=== PATIENT | female | born 1995 | race Caucasian/White ===

== ENCOUNTER 2017-01-13 23:42 | Emergency (ER) | payer BC, OTHER ==
[~2017-01-13 23:42] MED LIST: FLUT1SPR9 NASAL
[2017-01-14 02:00] VITALS: BP 141/71; PULSE 97; RESP 16; O2SAT 100
--- NOTE | 2017-01-14 03:31 | PD ---
HPI Chief Complaint: Psychiatric Symptoms Time Seen by Provider: 03:25 Travel History International Travel<30 days: No Contact w/Intl Traveler<30days: No Traveled to known affect area: No History of Present Illness HPI 21-year-old white female presents to emergency department under Mcfadden act by . The patient states that she had gone out with friends and a small boat fishing this evening. She had drank a large quantity of alcohol. She states that she does not recall the surrounding events that brought her to the ER tonight. According to the Mcfadden act the patient had become violent. When she had interacted with PD she seemed confused and could not take care of herself. She is brought here under a Mcfadden act. The patient here denies any suicidal homicidal ideation. She states merely that drank too much tonight. She denies any medical complaints. She does drink alcohol, smokes tobacco and marijuana on occasion. The patient states that her last menstrual cycle was approximately one month ago. Possible . PFSH Past Medical History Medical History: Denies Significant Hx Tetanus Vaccination: < 5 Years Past Surgical History Surgical History: No Previous Surgery Social History Alcohol Use: Yes (Socially) Tobacco Use: Yes (Socially ) Substance Use: Yes Allergies-Medications (Allergen,Severity, Reaction): Coded Allergies: No Known Allergies (Unverified , 05/19/16) Reported Meds & Prescriptions Reported Meds & Active Scripts Active Flonase Allergy Relief (Fluticasone Propionate (Nasal)) 50 Mcg/Act Spr 2 [place] NASAL DAILY 10 Days Review of Systems Except as stated in HPI: all other systems reviewed are Neg Physical Exam Narrative GENERAL: Well-nourished, well-developed patient. SKIN: Warm and dry. Patient has abrasions to the hands bilaterally which appear to be from striking something. HEAD: Normocephalic and atraumatic. EYES: No scleral icterus. No injection or drainage. ENT: No nasal drainage noted. Mucous membranes pink. Airway patent. NECK: Supple, trachea midline. Moves head freely without obvious discomfort. CARDIOVASCULAR: Regular rate and rhythm without murmurs, gallops, or rubs. RESPIRATORY: Breath sounds equal bilaterally. No accessory muscle use. GASTROINTESTINAL: Abdomen soft, non-tender, nondistended. EXTREMITIES: No cyanosis or edema. BACK: Nontender without obvious deformity. No CVA tenderness. NEURO: Patient is alert and oriented. no sensorimotor deficits. Nonfocal. Normal speech. PSYCH: No delusions. No auditory or visual hallucinations. Data Data Last Documented VS Vital Signs Date Time Temp Pulse Resp B/P Pulse Ox O2 Delivery O2 Flow Rate FiO2 01/14/17 02:00 97 16 141/71 100 Room Air Orders Psych Screen (01/14/17 00:18) Ed Urine Pregnancytest Poc (01/14/17 01:41) Drug Screen, Random Urine (01/14/17 01:41) Alcohol (Ethanol) (01/14/17 01:41) Diet Regular Basic (01/14/17 Breakfast) Ibuprofen (Motrin) (01/14/17 05:00) Labs Laboratory Tests Test 01/14/17 03:15 Ethyl Alcohol Level 218 MG/DL MDM Medical Decision Making Medical Screen Exam Complete: Yes Emergency Medical Condition: Yes Medical Record Reviewed: Yes Interpretation(s) Laboratory Tests Test 01/14/17 03:15 Ethyl Alcohol Level 218 MG/DL Differential Diagnosis MDM: High Differential diagnoses: Schizophrenia, schizoaffective disorder, bipolar, anxiety, depression, adjustment reaction, mood disorder NOS, ODD, depressive disorder NOS, dementia, dementia with agitation, psychosis NOS, substance induced mood disorder, intermittent explosive disorder, Asperger syndrome, infection,electrolyte abnormality, malingering. Narrative Course Mental health screening discussed with the patient. Psychiatric screen ordered. The patient does not appear to be suffering from mental illness. I suspect the patient should've been a Marchman act as opposed to a Mcfadden act. The patient obviously was intoxicated. The patient now is alert and oriented. She does not appear to be intoxicated. This is alcohol induced mood disorder Diagnosis Primary Impression: Alcohol-induced mood disorder Patient Instructions: General Instructions Condition: Stable Julio Grigsby Jan 14, 2017 03:31 Julio Grigsby Jan 14, 2017 03:31
[2017-01-14] MEDS ORDERED: IBUPROFEN 600 MG TAB PO ONE (05:00)
[2017-01-14 05:35] LABS: AMPHETAMINE, URINE NEG (NEG); BARBITURATES, URINE NEG (NEG); COCAINE, URINE NEG (NEG)
[2017-01-14 08:59] VITALS: BP 109/54; PULSE 89; RESP 18; O2SAT 99
[2017-01-14 11:46] VITALS: BP 98/56; PULSE 76; RESP 16; TEMP 98.6
--- NOTE | 2017-01-14 14:16 | PD ---
History of Present Illness Chief Complaint: Psychiatric Symptoms Time Seen by Provider: 13:30 Travel History International Travel<30 Days: No Contact w/Intl Traveler<30days: No Known affected area: No Legal Status Legal Status: Mcfadden Act Mcfadden Act Signed By: Maik Michelle Mcfadden Act Comment: 2016 @ 2316 History of Present Illness: The patient is a 21-year-old female who went out [employer] last evening and admits to consuming a large amount of alcohol. When she was brought to the emergency department she was under a Mcfadden act and confused. Apparently she was in an altercation with the police. She denied suicidal and homicidal ideation at that time and continues to deny it now. At this point she is no longer intoxicated and is very calm and pleasant and agreeable. She no longer meets Mcfadden act criteria and certainly does not require psychiatric hospitalization admission. [facility] Past Medical History Medical History: Denies Significant Hx Asthma: Yes Diminished Hearing: No Immunizations Current: Yes Tetanus Vaccination: < 5 Years ?: Not Past Surgical History Surgical History: No Previous Surgery Psychiatric History Psychiatric History Hx Psychiatric Treatment: DENIES History of Inpatient Treatment: No Guns or firearms in home: No Social History Hx Alcohol Use: Yes (Socially-BINGE) Hx Tobacco Use: No Hx Substance Use: Yes (MARIJUANA) Substance Use Type: Alcohol Hx of Substance Use Treatment: No Allergies-Medications (Allergen,Severity, Reaction): Coded Allergies: No Known Allergies (Unverified , 05/19/16) Reported Meds & Prescriptions Reported Meds & Active Scripts Active No Active Prescriptions or Reported Medications Review of Systems ROS Limitations: Clinical Condition Except as stated in HPI: all other systems reviewed are Neg Exam Alert: Yes [place]: Person, Place, Date, Situation Mood: Calm Affect: Euthymic Speech: Clear, Logical Eye Contact: Normal Memory Intact: Immediate, Recent, Remote Delusions: No Insight/Judgement Adequate MDM Medical Decision Making Medical Record Reviewed: Yes Assessment/Plan Patient's Mcfadden act is being lifted and she is being released from psychiatric treatment. She was advised to stop consuming large quantities of alcohol. Orders Psych Screen (01/14/17 00:18) Ed Urine Pregnancytest Poc (01/14/17 01:41) Drug Screen, Random Urine (01/14/17 01:41) Alcohol (Ethanol) (01/14/17 01:41) Diet Regular Basic (01/14/17 Breakfast) Ibuprofen (Motrin) (01/14/17 05:00) Diet Regular Basic (01/14/17 Lunch) Diet Regular Basic (01/14/17 Dinner) Results Vital Signs Date Time Temp Pulse Resp B/P Pulse Ox O2 Delivery O2 Flow Rate FiO2 01/14/17 11:46 98.6 76 16 98/56 Room Air 01/14/17 08:59 89 18 109/54 99 Room Air 01/14/17 02:00 97 16 141/71 100 Room Air Laboratory Tests Test 01/14/17 01/14/17 03:15 05:10 Ethyl Alcohol Level 218 Urine Opiates Screen NEG Urine Barbiturates Screen NEG Urine Amphetamines Screen NEG Urine Benzodiazepines Screen NEG Urine Cocaine Screen NEG Urine Cannabinoids Screen POS Diagnosis Primary Impression: Alcohol-induced mood disorder Referrals: [facility] (Out patient) call for appointment Departure Forms: Tests/Procedures Patient Instructions: General Instructions, Mood Disorders (ED) Prescriptions No Active Prescriptions or Reported Meds Disposition: 01 DISCHARGE HOME Condition: Stable Marcell Powell MD Jan 14, 2017 14:16
== END 2017-01-14 14:38 | disposition home or self-care (01) ==
LOC: NEPJ 23:42
DX: F10.14 Alcohol abuse with alcohol-induced mood disorder (principal); Y90.7 Blood alcohol level of 200-239 mg/100 ml
CPT/HCPCS: 80307; 80320; 84703; 99283